=== PATIENT | female | born 1975 | race Caucasian/White ===

== ENCOUNTER 2020-02-27 10:04 | Emergency (ER) | payer OTHER ==
[~2020-02-27] VITALS: Ht 157.5 cm; Wt 63.5 kg
== END 2020-02-27 14:45 | disposition home or self-care (01) ==
LOC: ER 10:04
DX: E73.8 Other lactose intolerance (principal); K52.89 Other specified noninfective gastroenteritis and colitis; Z03.818 Encounter for observation for suspected exposure to other biological agents ruled out